=== PATIENT | female | born 1945 | race Caucasian/White ===

== ENCOUNTER 2017-05-31 10:03 | Day surgery (SDC) | payer OTHER ==
[~2017-05-31] VITALS: Ht 152.4 cm; Wt 88.0 kg
[~2017-05-31 10:03] MED LIST: BENAZEPRIL HCL5 MG PO; LO-DOSE ASPIRIN81 M2 PO; NORVASC5 MG PO; PROBIOTIC1 EAC1 PO; VITAMIN D2000 UNI1 PO; ZOCOR10 MG PO
[2017-05-31 10:34] VITALS: BP 140/66
[2017-05-31] MEDS ORDERED: LORTAB 5-325 M1 EACH PO (15:20)
[2017-05-31 16:10] VITALS: BP 145/69
[2017-05-31 16:56] VITALS: BP 149/53
== END 2017-05-31 17:04 | disposition home or self-care (01) ==
LOC: SDC 10:03
PROC: 0DBP0ZZ Excision of Rectum, Open Approach (ICD-10-PCS; principal; 2017-05-31)
DX: K62.6 Ulcer of anus and rectum (principal); I10 Essential (primary) hypertension; E78.5 Hyperlipidemia, unspecified; Z79.82 Long term (current) use of aspirin
CPT/HCPCS: 88305; J0131; J0585; J1170; J1885; J2250; J2405; J2710; J3010; S0030; S0074

== ENCOUNTER → 2017-06-14 | Outpatient (CLI) | payer OTHER ==
[~2017-06-14] MED LIST changes: +LORTAB 5-325 M1 EACH PO
== END | disposition home or self-care (01) ==
DX: R26.2 Difficulty in walking, not elsewhere classified (principal); M25.561 Pain in right knee; M25.661 Stiffness of right knee, not elsewhere classified; M62.81 Muscle weakness (generalized); Z74.1 Need for assistance with personal care; M17.11 Unilateral primary osteoarthritis, right knee
CPT/HCPCS: 97150 GO; 97161 GP; 97165 GO; 97530 GP; G8978 GP; G8979 GP; G8980 GP; G8987 GO; G8988 GO; G8989 GO

== ENCOUNTER 2017-06-20 22:04 | Inpatient (IN) | payer OTHER ==
[~2017-06-20] VITALS: Ht 152.4 cm; Wt 87.8 kg
[2017-06-21 11:38] VITALS: BP 139/67
[2017-06-21 18:15] LABS: HEMATOCRIT 42.4 % (36.0-46.0); HEMOGLOBIN 14.2 G/DL (11.9-15.5); MCH 31.2 PG (29.0-34.0); MCHC 33.5 G/DL (30.0-36.0); MCV 93.2 FL (83-99); PLATELET COUNT 236 K/uL (156-360); RBC DIS.WIDTH-CV 12.3 % (11.8-14.6); RBC DIS.WIDTH-SD 42.2 % (39-53); RED BLOOD COUNT 4.55 M/uL (3.80-5.20)
[2017-06-21 19:53] VITALS: BP 149/63
[2017-06-22] VITALS: BP 145/63
[2017-06-22 04:13] VITALS: BP 130/63
[2017-06-22 04:52] LABS: HEMATOCRIT 41.7 % (36.0-46.0); HEMOGLOBIN 14.5 G/DL (11.9-15.5); MCV 90.1 FL (83-99)
[2017-06-22 05:05] LABS: CHLORIDE 103 mEq/L (99-109); POTASSIUM 4.1 mEq/L (3.7-5.4); SODIUM 136 mEq/L (136-147)
[2017-06-22 05:07] LABS: GLUCOSE 232 mg/dL (70-99)
[2017-06-22 05:11] LABS: CREATININE 0.7 mg/dL (0.6-1.3); GFR ESTIMATE (CALCULATED) > 59 mL/min/; UREA NITROGEN (BUN) 9 mg/dL (9-23)
[2017-06-22 08:21] VITALS: BP 141/62
[2017-06-22 12:16] VITALS: BP 133/59
[2017-06-22 15:31] VITALS: BP 136/62
[2017-06-22 19:52] VITALS: BP 127/60
[2017-06-23 00:19] VITALS: BP 143/65
[2017-06-23 04:00] VITALS: BP 145/72
[2017-06-23 05:23] LABS: HEMATOCRIT 40.6 % (36.0-46.0); MCV 89.6 FL (83-99)
[2017-06-23 08:00] VITALS: BP 134/64
[2017-06-23] MEDS ORDERED: ENDOCET 5-3251 EACH PO (08:41)
[2017-06-23] MEDS ORDERED: LOVENOX40 MG/0.4 SC (08:41)
[2017-06-23 12:25] VITALS: BP 118/71
== END 2017-06-23 14:12 | DRG 470 ==
LOC: ENRESERV 22:04 → 2SOUTH 06-21 09:50 → 3WEST 06-21 19:00
PROVIDERS: Orthopaedic Surgery
PROC: 0SRC0J9 Replacement of Right Knee Joint with Synthetic Substitute, Cemented, Open Approach (ICD-10-PCS; principal; 2017-06-21)
DX: M17.11 Unilateral primary osteoarthritis, right knee (principal); E78.5 Hyperlipidemia, unspecified; I10 Essential (primary) hypertension; K21.9 Gastro-esophageal reflux disease without esophagitis; K64.8 Other hemorrhoids; K58.9 Irritable bowel syndrome, unspecified; Z82.3 Family history of stroke; Z82.49 Family history of ischemic heart disease and other diseases of the circulatory system; Z83.3 Family history of diabetes mellitus; Z96.652 Presence of left artificial knee joint; Z87.19 Personal history of other diseases of the digestive system
CPT/HCPCS: 73560; 80048; 85014; 85018; 85027; 97530 GO; C1713; J0690; J1100; J1170; J1650; J2250; J2405; J2795; J3010; J7050